=== PATIENT | male | born 1945 | race Caucasian/White ===

== ENCOUNTER 2022-02-28 07:47 | Inpatient (IN) | payer MEDICARE, OTHER ==
[~2022-02-28 07:47] MED LIST: NORVASC 5 MG TAB5 MG PO
[2022-02-28 08:29] LABS: HEMOGLOBIN 12.3 gm/dl (14.0-17.5); RED BLOOD COUNT 3.89 M/UL (4.20-5.50); WHITE BLOOD COUNT 9.1 K/UL (4.5-11.0)
== END 2022-02-28 15:04 | disposition short-term general hospital (02) | DRG 194 ==
LOC: ER1 07:47 → CDU 09:54
PROVIDERS: Emergency Medicine; ADMIT Internal Medicine
DX: J18.9 Pneumonia, unspecified organism (principal); J44.0 Chronic obstructive pulmonary disease with (acute) lower respiratory infection; J44.1 Chronic obstructive pulmonary disease with (acute) exacerbation; R65.10 Systemic inflammatory response syndrome (SIRS) of non-infectious origin without acute organ dysfunction; I10 Essential (primary) hypertension; D64.9 Anemia, unspecified
CPT/HCPCS: 0240U; 36600; 71045; 80053; 82550; 82553; 82803; 83605; 83735; 83880; 84484; 85025; 87040; 93005; 94640; 94664; 94760; 96374; 96375; 99285; J0456; J0696; J2920; J7040; J7050

== ENCOUNTER → 2022-03-28 | Outpatient (CLI) | payer MEDICARE, OTHER | LOC: HEART 5 14:32 | DX: J44.9 Chronic obstructive pulmonary disease, unspecified (principal) | CPT/HCPCS: 94060; 94729 ==

== ENCOUNTER → 2022-04-18 | Outpatient (CLI) | payer MEDICARE ==
[2022-04-18 16:38] LABS: HEMOGLOBIN 13.1 gm/dl (14.0-17.5); RED BLOOD COUNT 4.17 M/UL (4.20-5.50); WHITE BLOOD COUNT 12.1 K/UL (4.5-11.0)
[2022-04-18 17:23] LABS: BUN/CREATININE RATIO 15 (0-10)
== END ==
LOC: KOH-I 13:30 → ECHO 13:40
PROVIDERS: Internal Medicine Pulmonary Disease
DX: R60.0 Localized edema (principal); J44.9 Chronic obstructive pulmonary disease, unspecified; R91.8 Other nonspecific abnormal finding of lung field
CPT/HCPCS: 36415; 71250; 80048; 83880; 85025

== ENCOUNTER → 2022-05-06 | Outpatient (CLI) | payer MEDICARE | LOC: HEART 5 08:43 | DX: R60.0 Localized edema (principal); I08.3 Combined rheumatic disorders of mitral, aortic and tricuspid valves | CPT/HCPCS: 93306 ==